=== PATIENT | female | born 2005 | race Caucasian/White ===

== ENCOUNTER 2024-06-09 19:17 | Emergency (ER) | payer OTHER, SELFPAY ==
[2024-06-09 19:39] VITALS: BP 120/77; PULSE 83; RESP 20; O2SAT 100
[2024-06-09 19:44] VITALS: BP 120/77; PULSE 77; RESP 18; TEMP 36.7; O2SAT 98; BMI 23.2
[2024-06-09 20:00] VITALS: BP 122/80; PULSE 74; RESP 15; O2SAT 100
--- NOTE | 2024-06-09 20:06 | EKG_ITS ---
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
--- NOTE | 2024-06-09 20:29 | ED.ABDPAIN ---
HPI - Abdominal Pain General Chief Complaint: Abdominal Pain Stated Complaint: abd px, syncope Time Seen by Provider: 06/09/24 19:36 Source: patient Mode of arrival: Ambulatory History of Present Illness HPI narrative: 18yoF with PMH PCOS presents for lower abdominal pain. Patient states that she also has nausea and occasionally feels lightheaded and like she was about to pass out, but has not passed out. Patient has not taken any medications at home for her symptoms. She states that her main concern is controlling her nausea so that she can eat. Recently moved here from [place], is in the . Related Data Previous Rx's Medication Instructions Recorded ondansetron 4 mg disintegrating 4 mg PO Q8H PRN nausea and 06/09/24 tablet vomiting #30 tabs Allergies Allergy/AdvReac Type Severity Reaction Status Date / Time No Known Drug Allergies Allergy Verified 06/09/24 19:49 Patient History Social History Smoking Status: Never smoker Smoking Status: Never smoker Substance Use Type: does not use Exam Initial Vital Signs Initial Vital Signs: Vital Signs Pulse Rate 83 06/09/24 19:39 Respiratory Rate 20 06/09/24 19:39 Blood Pressure 120/77 06/09/24 19:39 Pulse Oximetry 100 06/09/24 19:39 Const: Awake, alert, no acute distress, nontoxic appearing Cardiac: regular rate, regular rhythm RESP: unlabored, clear bilaterally, no wheezing GI: Soft, nontender, nondistended, no rebound, no guarding Skin: Warm, Dry, intact, no rashes Neuro: AO x3, CN II-XII grossly intact, moves all extremities Course Orders Ordered: Discontinued Medications Ketorolac Tromethamine (Ketorolac 30 Mg/Ml Vial) 30 mg IM NOW ONE Stop: 06/09/24 20:29 Last Admin: 06/09/24 20:44 Dose: 30 mg Documented By: VIRI Ondansetron HCl (Ondansetron 4 Mg Odt) 4 mg SL NOW ONE Stop: 06/09/24 20:29 Last Admin: 06/09/24 20:45 Dose: 4 mg Documented By: VIRI Vital Signs Vital signs: Vital Signs - 8 hr 06/09/24 19:39 06/09/24 19:39 08/25/24 19:44 Temperature 98.1 F Pulse Rate 83 77 Respiratory Rate 20 18 Blood Pressure 120/77 120/77 Pulse Oximetry 100 98 Oxygen Delivery Method Room Air 06/09/24 20:00 06/09/24 20:00 Temperature Pulse Rate 74 Respiratory Rate 15 Blood Pressure 122/80 Pulse Oximetry 100 Oxygen Delivery Method MDM - Abdominal Pain Differential Diagnosis Differential diagnosis: Likely abdominal pain, constipation and endometriosis Lab Data 06/09/24 20:47 06/09/24 20:47 Labs: Lab Results 06/09/24 Range/Units 20:47 WBC 12.9 H (4.5-11.0) X10^3/uL RBC 4.55 (4.0-5.2) X10^6/uL Hgb 13.2 (12.0-16.0) g/dL Hct 38.9 (36-46) % MCV 85.6 (80-100) fL MCH 29.1 (26-34) PG MCHC 34.0 (30-36) % RDW 12.9 (11.6-14.8) % Plt Count 215 (150-400) X10^3/uL Neut % (Auto) 64.4 (50-75) % Lymph % (Auto) 26.7 (25-40) % [place] % (Auto) 8.0 (3-14) % Eos % (Auto) 0.7 L (2-4) % Baso % (Auto) 0.2 (0-2) % Neut # (Auto) 8300 H (1126-5836) /uL Lymph # (Auto) 3400 (1978-2505) /uL [place] # (Auto) 1000 H (0-900) /uL Eos # (Auto) 100 (0-450) /uL Baso # (Auto) 0 (0-100) /uL Sodium 139 (137-145) mmol/L Potassium 4.0 (3.4-5.1) mmol/L Chloride 106 (98-107) mmol/L Carbon Dioxide 24 (22-32) mmol/L BUN 8 (7-17) mg/dL Creatinine 0.73 (0.52-1.04) mg/dL Estimated GFR > 60 (>60) mL/min BUN/Creatinine Ratio 11.0 (6-22) Glucose 107 H (70-100) mg/dL Calcium 9.1 (8.4-10.2) mg/dL Total Bilirubin 0.4 (0.2-1.3) mg/dL AST 24 (14-36) IU/L ALT 15 (<35) IU/L Alkaline Phosphatase 59 (38-126) U/L Total Protein 7.4 (6.3-8.2) g/dL Albumin 4.5 (3.5-5.0) g/dL Globulin 2.9 (1.7-4.1) g/dL Albumin/Globulin Ratio 1.6 (1.0-2.8) Point of care testing: Point of Care Testing Test Results Negative Urine Dip Bedside Urine Glucose Negative Bedside Urine Bilirubin - Negative Bedside Urine Ketone - Negative Urine Specific [place] 1.005 Bedside Urine Occult Blood +/- Bedside Urine pH 6.0 Bedside Urine Protein - Negative Bedside Urine Urobilinogen - Negative Bedside Urine Nitrite - Negative Bedside Urine Leukocytes - Negative Esterase MDM Narrative Medical decision making narrative: Well-appearing patient with lower pelvic pain and nausea. Urine test negative. Laboratory work is unremarkable, EKG normal sinus rhythm. Patient counseled on appropriate pain medications to take at home, given referral paperwork to local OBGYN clinics. Nausea medication sent to pharmacy of choice. Discharge Plan Departure Patient Disposition: Home Clinical Impression: Pelvic pain, Nausea Instructions: DI for Pelvic Pain Activity Restrictions/Additional Instructions: Your laboratory work today was normal. Your EKG did not show any concerning findings. Nausea medication [facility] in [place]. Take Tylenol and ibuprofen as needed for pelvic pain. I highly recommend following up with either your primary care doctor or an OBGYN. Please use the referral sheet provided to you by your nurse. Prescriptions: New ondansetron 4 mg tablet,disintegrating 4 mg PO Q8H PRN (Reason: nausea and vomiting) Qty: 30 0RF Referrals: ProviderPeter [Primary Care Provider] - Stand Alone Forms: Patient Portal/API
[2024-06-09 20:30] VITALS: BP 107/65; PULSE 76; O2SAT 100
[2024-06-09] MEDS: KETOROLAC 30 MG/ML VIAL IM (20:44)
[2024-06-09] MEDS: ONDANSETRON 4 MG ODT SL (20:45)
[2024-06-09 20:59] LABS: Add Manual Diff / Slide Review NO; Basophils Absolute Auto 0 /uL (0-100); Basophils Percent Auto 0.2 % (0-2); Eosinophils Absolute Auto 100 /uL (0-450); Eosinophils Percent Auto 0.7 % (2-4); Hematocrit 38.9 % (36-46); Hemoglobin 13.2 g/dL (12.0-16.0); Lymphocytes Absolute Auto 3400 /uL (1100-4500); Lymphocytes Percent Auto 26.7 % (25-40); Mean Corpuscular Hemoglobin 29.1 PG (26-34); Mean Corpuscular Volume 85.6 fL (80-100); Monocytes Absolute Auto 1000 /uL (0-900); Neutrophils Absolute Auto 8300 /uL (1500-7000); Neutrophils Percent Auto 64.4 % (50-75); Platelet Count 215 X10^3/uL (150-400); Red Blood Cell Count 4.55 X10^6/uL (4.0-5.2); Red Cell Distribution Width 12.9 % (11.6-14.8); White Blood Cell Count 12.9 X10^3/uL (4.5-11.0)
[2024-06-09 21:00] VITALS: BP 109/67; PULSE 74; O2SAT 100
[2024-06-09 21:26] LABS: Alanine Aminotransferase 15 IU/L (<35); Albumin 4.5 g/dL (3.5-5.0); Albumin Globulin Ratio 1.6 (1.0-2.8); Alkaline Phosphatase 59 U/L (38-126); Aspartate Aminotransferase 24 IU/L (14-36); Bilirubin Total 0.4 mg/dL (0.2-1.3); Blood Urea Nitrogen 8 mg/dL (7-17); Calcium 9.1 mg/dL (8.4-10.2); Carbon Dioxide 24 mmol/L (22-32); Chloride 106 mmol/L (98-107); Estimated Glomerular Filt Rate > 60 mL/min (>60); Globulin 2.9 g/dL (1.7-4.1); Glucose 107 mg/dL (70-100); HEMOLYSIS < 15 (0-50); Sodium 139 mmol/L (137-145); Total Protein 7.4 g/dL (6.3-8.2)
[2024-06-09 21:30] VITALS: BP 109/64; PULSE 79; O2SAT 99
== END 2024-06-09 21:53 | disposition home or self-care (01) ==
PROVIDERS: Emergency Provider Emergency Medicine
DX: R10.2 Pelvic and perineal pain (principal); R11.0 Nausea; R42 Dizziness and giddiness; R07.9 Chest pain, unspecified
CPT/HCPCS: 36415; 80053; 81003; 81025; 85025; 93005; 96372; 99283; 99284; J1885